=== PATIENT | female | born 1995 | race Two or more races ===

== ENCOUNTER 2018-03-26 08:09 | Emergency (ER) | payer OTHER ==
[2018-03-26] MEDS ORDERED: DOXYLAMINE 25 MG TABLET PO STA (08:59)
[2018-03-26] MEDS ORDERED: SODIUM CHLORIDE 0.9% 1,000 ML IV ONE (08:59)
[2018-03-26] MEDS ORDERED: PYRIDOXINE 100 MG TABLET PO STA (09:00)
--- NOTE | 2018-03-26 09:04 | ED Physician Documentation ---
PD HPI NVD - Stated complaint Stated Complaint: VOMITING/12 WKS PREG - Chief complaint Chief Complaint: General - History obtained from History obtained from: Patient, Family - History of Present Illness Timing - onset: How many weeks ago (3) Timing - duration: Weeks (3) Timing - details: Gradual onset, Still present, Waxing and waning Associated symptoms: Abdominal pain, Other (vomiting) Contributing factors: Other ( 11 weeks) Improved by: Vomiting Similar symptoms before: Diagnosis (hyperemesis) Recently seen: Emergency Dept - Additonal information Additional information: 23-year-old female is 11 weeks and has developed nausea and vomiting at about 8 weeks. She has had a difficult time keeping down any fluids. She was seen in the emergency department at [facility] in [place] 6 days ago given IV fluids and zofran with some improvement. She has vomited daily since and is having leg cramping as well. Review of Systems Constitutional: denies: Fever Eyes: denies: Decreased vision Ears: denies: Ear pain Nose: denies: Congestion Throat: denies: Sore throat Cardiac: denies: Chest pain / pressure, Palpitations Respiratory: denies: Dyspnea, Cough GI: reports: Nausea, Vomiting. denies: Abdominal Pain : denies: Dysuria, Frequency Skin: denies: Rash, Lesions Musculoskeletal: denies: Neck pain, Back pain, Extremity pain Neurologic: denies: Generalized weakness, Focal weakness, Numbness PD PAST MEDICAL HISTORY - Past Medical History Neuro: Headaches - Past Surgical History Past Surgical History: Yes General: Cholecystectomy, Appendectomy - Present Medications Home Medications: Ambulatory Orders Medication Instructions Recorded Confirmed Acetaminophen [Tylenol] PRN 03/26/18 Ondansetron [Zofran Odt] 03/26/18 Vitamin [Trinatal Rx 1] PO DAILY 03/26/18 - Allergies Allergies/Adverse Reactions: Allergies Allergy/AdvReac Type Severity Reaction Status Date / Time No Known Drug Allergies Allergy Verified 03/26/18 08:30 - Social History Does the pt smoke?: No Smoking Status: Never smoker Does the pt drink ETOH?: No Does the pt have substance abuse?: No - Immunizations Immunizations are current?: Yes PD ED PE NORMAL - Vitals Vital signs reviewed: Yes (hypertensive ) - General General: Alert and oriented X 3, No acute distress, Well developed/nourished - HEENT HEENT: Atraumatic, PERRL, EOMI - Neck Neck: Supple, no meningeal sign, No bony TTP - Cardiac Cardiac: RRR, No murmur - Respiratory Respiratory: No respiratory distress, Clear bilaterally - Abdomen Abdomen: Soft, Non tender - Back Back: No CVA TTP, No spinal TTP - Derm Derm: Normal color, Warm and dry, No rash - Extremities Extremities: No deformity, No edema - Neuro Neuro: Alert and oriented X 3, manager line 2-12 intact, No motor deficit, No sensory deficit, Normal speech Eye Opening: Spontaneous Motor: Obeys Commands Verbal: Oriented GCS Score: 15 - Psych Psych: Normal mood, Normal affect Results - Vitals Vitals: Vital Signs - 24 hr 03/26/18 03/26/18 03/26/18 08:27 10:54 13:09 Temperature 36.7 C Heart Rate 82 73 62 Respiratory 15 15 15 Rate Blood Pressure 135/97 H 115/77 114/64 O2 Saturation 98 98 97 Oxygen O2 Source Room air - Labs Labs: Laboratory Tests 03/26/18 03/26/18 03/26/18 09:15 09:15 11:40 WBC 11.9 H RBC 4.68 Hgb 14.0 Hct 40.4 MCV 86.5 MCH 29.9 MCHC 34.6 RDW 13.5 Plt Count 247 MPV 7.9 Neut # (Auto) 8.8 H Lymph # (Auto) 2.5 Bibb # (Auto) 0.5 Eos # (Auto) 0.1 Baso # (Auto) 0.0 Absolute Nucleated RBC 0.00 Nucleated RBC % 0.0 Sodium 135 Potassium 3.4 L Chloride 105 Carbon Dioxide 24 Anion Gap 6.0 BUN 10 Creatinine 0.4 Estimated GFR (MDRD) 194 Glucose 91 Calcium 8.9 Total Bilirubin 0.6 AST 24 ALT 40 Alkaline Phosphatase 56 Total Protein 7.3 Albumin 3.9 Globulin 3.4 Albumin/Globulin Ratio 1.1 Lipase 23 Urine Color YELLOW Urine Clarity CLOUDY Urine pH 8.0 H Ur Specific [place] 1.015 Urine Protein NEGATIVE Urine Glucose (UA) NEGATIVE Urine Ketones NEGATIVE Urine Occult Blood NEGATIVE Urine Nitrite NEGATIVE Urine Bilirubin NEGATIVE Urine Urobilinogen 1 (NORMAL) Ur Leukocyte Esterase NEGATIVE Urine RBC 0-5 Urine WBC 0-3 Ur Squamous Epith Cells FEW Squamous Amorphous Sediment Moderate Urine Bacteria Moderate H Ur Microscopic Review INDICATED Urine Culture Comments INDICATED Procedures - Bedside sono Bedside sono by EMP: With use of bedside ultrasound a viable 11 week 4 day old fetus by crown-rump length has a heart rate of 156 bpm. - IVC sono (time) 0900 Bedside IVC sono: IVC measures (cm) (1.14), IVC collapsed c insp (cm) (complete) , Dehydration (est 1.5 liter deficit) PD MEDICAL DECISION MAKING - ED course Complexity details: reviewed results, re-evaluated patient, considered differential, d/w patient, d/w family ED course: 23-year-old female with hyperemesis gravidarum is administered doxylamine and vitamin B6 as well as intravenous saline. She does not tolerate the doxylamine and vomits the dose. She is given zofran IVP with improvement. She has bacteria in the urine and a single dose of rocephin is given IV and the urine is cultured. - Sepsis Event Vital Signs: Vital Signs - 24 hr 03/26/18 03/26/18 03/26/18 08:27 10:54 13:09 Temperature 36.7 C Heart Rate 82 73 62 Respiratory 15 15 15 Rate Blood Pressure 135/97 H 115/77 114/64 O2 Saturation 98 98 97 Oxygen O2 Source Room air Departure - Departure Disposition: 01 Home, Self Care Clinical Impression: Hyperemesis gravidarum, Dehydration Condition: Stable Instructions: ED Dehydration, ED Preg Morning Sickness Follow-Up: ED Antonio [Provider Group] Comments: Today you were a bit dehydrated from the vomiting. Our recommendation is the doxylamine (unisom) 25mg and vitamin B6 together for nausea control. Follow up with your OB doctor this week. Discharge Date/Time: 03/26/18 13:08
[2018-03-26 09:20] LABS: BASOPHILS % (AUTO) 0.4 %; EOSINOPHILS # (AUTO) 0.1 10^3/uL (0.0-0.7); EOSINOPHILS % (AUTO) 0.7 %; LYMPHOCYTES # (AUTO) 2.5 10^3/uL (1.5-3.5); LYMPHOCYTES % (AUTO) 20.8 %; MEAN CORPUSCULAR HEMOGLOBIN 29.9 pg (27.0-31.0); MEAN CORPUSCULAR HGB CONC 34.6 g/dL (32.0-36.0); MEAN CORPUSCULAR VOLUME 86.5 fL (81.0-99.0); MEAN PLATELET VOLUME 7.9 fL (7.9-10.8); MONOCYTES # (AUTO) 0.5 10^3/uL (0.0-1.0); MONOCYTES % (AUTO) 4.4 %; NEUTROPHILS # (AUTO) 8.8 10^3/uL (1.5-6.6); NEUTROPHILS % (AUTO) 73.7 %; PLT - PLATELET COUNT 247 10^3/uL (130-450); RED BLOOD COUNT 4.68 10^6/uL (4.20-5.40); RED CELL DISTRIBUTION WIDTH 13.5 % (12.0-15.0); WHITE BLOOD COUNT 11.9 x10^3/uL (4.8-10.8)
[2018-03-26 09:37] LABS: ALBUMIN 3.9 g/dL (3.2-5.5); ALBUMIN/GLOBULIN RATIO 1.1 (1.0-2.2); BILIRUBIN,TOTAL 0.6 mg/dL (0.2-1.0); CALCIUM 8.9 mg/dL (8.5-10.3); CREATININE 0.4 mg/dL (0.4-1.0); TOTAL PROTEIN 7.3 g/dL (6.7-8.2)
[2018-03-26] MEDS ORDERED: POTASSIUM BICARB 25 MEQ TABLET PO STA (10:31)
[2018-03-26] MEDS ORDERED: ONDANSETRON 4 MG/2 ML VIAL IVP STA (10:51)
[2018-03-26] MEDS ORDERED: ONDANSETRON 4 MG/2 ML VIAL ONE (10:56)
[2018-03-26 11:51] LABS: BILIRUBIN,URINE NEGATIVE (NEGATIVE); GLUCOSE, URINE (UA) NEGATIVE (NEGATIVE); KETONES,URINE (UA) NEGATIVE (NEGATIVE); LEUKOCYTE ESTERASE, URINE NEGATIVE (NEGATIVE); NITRITE,URINE NEGATIVE (NEGATIVE); OCCULT BLOOD,URINE NEGATIVE (NEGATIVE); PROTEIN,URINE NEGATIVE (NEGATIVE); UROBILINOGEN,URINE 1 (NORMAL) E.U./dL (NORMAL)
[2018-03-26 12:02] LABS: CLARITY,URINE CLOUDY (CLEAR)
[2018-03-26 12:03] LABS: AMORPHOUS SEDIMENT,UR Moderate /LPF; BACTERIA,URINE Moderate /HPF (None Seen); RBC,URINE 0-5 /HPF (0-5); SQUAMOUS EPITHELIAL CELL,UR FEW Squamous (<= Few)
[2018-03-26] MEDS ORDERED: cefTRIAXone 1 GM in SODIUM CHLORIDE 0.9% MINIBAG 100 ML IV STA (12:12)
[2018-03-26 13:10] VITALS: BP 114/64
== END 2018-03-26 13:08 | disposition home or self-care (01) ==
LOC: ED 08:09
DX: O21.1 Hyperemesis gravidarum with metabolic disturbance (principal); Z3A.11 11 weeks gestation of pregnancy
CPT/HCPCS: 36415; 80053; 81001; 83690; 85025; 87086; 96361; 96365; 96375; 99283; A9270; 81003

== ENCOUNTER 2018-03-28 10:30 | Observation (INO) | payer OTHER ==
[2018-03-28] MEDS ORDERED: SODIUM CHLORIDE 0.9% 2,000 ML IV ONE (10:41)
[2018-03-28] MEDS ORDERED: DEXTROSE 5%-0.45% NACL 1,000 ML IV ONE (10:42)
[2018-03-28 11:20] LABS: BUN - BLOOD UREA NITROGEN 8 mg/dL (6-20); CALCIUM 9.1 mg/dL (8.5-10.3); CARBON DIOXIDE - CO2 21 mmol/L (21-32); CHLORIDE 105 mmol/L (101-111); CREATININE 0.4 mg/dL (0.4-1.0); GFR - MDRD 194 (>89); GLUCOSE 92 mg/dL (70-100); KETONES, SERUM (ACETEST) NEGATIVE (NEGATIVE); SODIUM 134 mmol/L (135-145)
[2018-03-28] MEDS ORDERED: METOCLOPRAMIDE 10 MG/2 ML VIAL IVP STA (12:45)
--- NOTE | 2018-03-28 12:48 | ED Physician Documentation ---
History of Present Illness - Stated complaint Stated Complaint: VOMITING/12WKS PREG - Chief complaint Chief Complaint: Abd Pain - Additonal information Additional information: hx from pt 23 y/o followed at [facility] has had sono showing single live IUP per pt vomiting since 8 wk EGA [place] tried 4 different antiemetics per pt (B6 zofran and some others) and none work still with NV some abd cramping no bleeding called her OB who called [facility] to have pt admitted for hyperemesis and [facility] Ob referred pt to the ER no travel no bad food no sick contacts Review of Systems Constitutional: denies: Fever GI: reports: Vomiting. denies: Abdominal Pain : reports: Now EGA. denies: Vaginal bleeding PD PAST MEDICAL HISTORY - Past Medical History Neuro: Headaches - Past Surgical History Past Surgical History: Yes General: Cholecystectomy, Appendectomy - Present Medications Home Medications: Ambulatory Orders Medication Instructions Recorded Confirmed Vitamin [Trinatal Rx 1] 1 tab PO DAILY 03/26/18 03/28/18 ALPRAZolam [Alprazolam] 0.5 mg PO PRN PRN 03/28/18 03/28/18 - Allergies Allergies/Adverse Reactions: Allergies Allergy/AdvReac Type Severity Reaction Status Date / Time No Known Drug Allergies Allergy Verified 03/28/18 10:39 - Social History Does the pt smoke?: No Smoking Status: Never smoker Does the pt drink ETOH?: No Does the pt have substance abuse?: No - Immunizations Immunizations are current?: Yes - POLST Patient has POLST: No PD ED PE NORMAL - Vitals Vital signs reviewed: Yes - Cardiac Cardiac: RRR - Respiratory Respiratory: No respiratory distress, Clear bilaterally - Abdomen Abdomen: Soft, Non tender - Neuro Neuro: Alert and oriented X 3 Results - Vitals Vitals: Vital Signs - 24 hr 03/28/18 03/28/18 10:37 13:19 Temperature 36.5 C Heart Rate 81 72 Respiratory 18 16 Rate Blood Pressure 124/89 H 111/61 O2 Saturation 98 97 Oxygen O2 Source Room air - Labs Labs: Laboratory Tests 03/28/18 03/28/18 03/28/18 10:50 10:50 10:50 Sodium 134 L Potassium 3.3 L Chloride 105 Carbon Dioxide 21 Anion Gap 8.0 BUN 8 Creatinine 0.4 Estimated GFR (MDRD) 194 Glucose 92 Calcium 9.1 AST Lactate Dehydrogenase 94 Amylase 63 Urine Color Urine Clarity Urine pH Ur Specific [place] Urine Protein Urine Glucose (UA) Urine Ketones Urine Occult Blood Urine Nitrite Urine Bilirubin Urine Urobilinogen Ur Leukocyte Esterase Urine RBC Urine WBC Ur Squamous Epith Cells Urine Bacteria Ur Microscopic Review Urine Culture Comments Serum Ketones NEGATIVE 03/28/18 03/28/18 10:50 13:09 Sodium Potassium Chloride Carbon Dioxide Anion Gap BUN Creatinine Estimated GFR (MDRD) Glucose Calcium AST 21 Lactate Dehydrogenase Amylase Urine Color YELLOW Urine Clarity CLOUDY Urine pH 8.5 H Ur Specific [place] 1.015 Urine Protein NEGATIVE Urine Glucose (UA) NEGATIVE Urine Ketones 15 H Urine Occult Blood NEGATIVE Urine Nitrite NEGATIVE Urine Bilirubin NEGATIVE Urine Urobilinogen 0.2 (NORMAL) Ur Leukocyte Esterase NEGATIVE Urine RBC 0-5 Urine WBC 0-3 Ur Squamous Epith Cells FEW Squamous Urine Bacteria Moderate H Ur Microscopic Review INDICATED Urine Culture Comments INDICATED Serum Ketones PD MEDICAL DECISION MAKING - ED course ED course: UA moderate bacteria but no WBC leuk est nitrates - prior cx form few days ago no growth pt reports numerous ED visits and not better with trying different PO antiemetics - sent by her ED OB to be admitted gave IVF and reglan (cat B) in ED - better but still with nausea vomit spoke to OB Dr Bell who will pbs for IVF and meds - Sepsis Event Vital Signs: Vital Signs - 24 hr 03/28/18 03/28/18 10:37 13:19 Temperature 36.5 C Heart Rate 81 72 Respiratory 18 16 Rate Blood Pressure 124/89 H 111/61 O2 Saturation 98 97 Oxygen O2 Source Room air Departure - Departure Disposition: ED Place in Observation Clinical Impression: Hyperemesis Condition: Fair Discharge Date/Time: 03/28/18 16:24
[2018-03-28 13:19] LABS: BILIRUBIN,URINE NEGATIVE (NEGATIVE); GLUCOSE, URINE (UA) NEGATIVE (NEGATIVE); KETONES,URINE (UA) 15 mg/dL (NEGATIVE); LEUKOCYTE ESTERASE, URINE NEGATIVE (NEGATIVE); NITRITE,URINE NEGATIVE (NEGATIVE); OCCULT BLOOD,URINE NEGATIVE (NEGATIVE); PH,URINE 8.5 PH (5.0-7.5); PROTEIN,URINE NEGATIVE (NEGATIVE); UROBILINOGEN,URINE 0.2 (NORMAL) E.U./dL (NORMAL)
[2018-03-28 13:20] LABS: CLARITY,URINE CLOUDY (CLEAR)
[2018-03-28 13:33] LABS: BACTERIA,URINE Moderate /HPF (None Seen); RBC,URINE 0-5 /HPF (0-5); SQUAMOUS EPITHELIAL CELL,UR FEW Squamous (<= Few)
[2018-03-28] MEDS ORDERED: LACTATED RINGERS 1,000 ML IV ONE (15:12)
[2018-03-28] MEDS ORDERED: ONDANSETRON 4 MG/2 ML VIAL IVP STA (15:14)
[2018-03-28] MEDS ORDERED: SODIUM CHLORIDE FLUSH 0.9% 10 ML SYRINGE ONE (16:46)
[2018-03-28] MEDS ORDERED: ACETAMINOPHEN 325 MG TABLET PO PRN (21:04)
[2018-03-28] MEDS: POTASSIUM CHLOR 10 MEQ/100 ML 10 MEQ/100 ML BAG IV SCH ×3 (21:27→23:49)
[2018-03-28] MEDS ORDERED: PROMETHAZINE 25 MG SUPP PR SCH (22:00)
[2018-03-28] MEDS: ONDANSETRON 4 MG/2 ML VIAL IVP PRN (22:28)
[2018-03-28] MEDS: LACTATED RINGERS 1,000 ML IV SCH (22:33)
--- NOTE | 2018-03-29 03:09 | Ultrasound Report ---
Procedure Date: 03/29/2018 Accession Number: [id number] / [id number] Procedure: US - OB First Trimester CPT Code: FULL RESULT: EXAM: FIRST TRIMESTER OBSTETRIC ULTRASOUND EXAM DATE: 03/29/2018 01:14 AM. CLINICAL HISTORY: For development, placenta, molar . LMP: 12/31/2017. COMPARISONS: None. TECHNIQUE: Transabdominal ultrasound examination with static image documentation. CLINICAL DATES: EGA 12 weeks 4 days with ELINA 10/07/2018 based on LMP. ASSESSMENT: Gestational Sac: Single intrauterine. Mean gestational sac diameter: 52.7 mm. Embryo: CRL (crown-rump length) 54.3 mm = 12 weeks 0 days. Cardiac activity: 152 beats per minute. Yolk sac: Not seen. Amniotic fluid: Not accurately assessed at this gestational age. Early placenta: Posterior. Other: No perigestational fluid collection demonstrated. MATERNAL STRUCTURES: Uterus: Anteverted. Unremarkable. Cervix: Closed. Right Ovary/Adnexa: Unremarkable. The ovary measures 3.0 x 1.7 x 2.6 cm, volume 7.1 cc. Left Ovary/Adnexa: Unremarkable. The ovary measures 2.2 x 1.6 x 3.5 cm, volume 6.4 cc. Free Fluid: None. Other: Cystic structure in the right lower quadrant lateral to the uterus measuring 2.8 x 2.8 x 2.9 cm. IMPRESSION: 1. Single viable intrauterine at EGA 12 weeks 0 days with ELINA 10/11/2018 based on crown-rump length, which is concordant with clinical dates. 2. Assigned dating is ELINA 10/07/2018 based on LMP. 3. Developing placenta is posterior. No placental abnormalities seen. 4. Cystic structure of uncertain etiology to the right of the uterus measuring 2.8 x 2.8 x 2.9 cm. This does not appear to arise from the right ovary. RADIA
[2018-03-29] MEDS: LACTATED RINGERS 1,000 ML IV SCH (04:41)
[2018-03-29 06:43] LABS: ALBUMIN/GLOBULIN RATIO 1.3 (1.0-2.2); ALKALINE PHOSPHATASE 45 IU/L (42-121); ALT ALANINE AMINOTRANSFERASE 28 IU/L (10-60); AST ASPARTATE AMINOTRANSFERASE 18 IU/L (10-42); BILIRUBIN,TOTAL 0.7 mg/dL (0.2-1.0); BUN - BLOOD UREA NITROGEN < 5 mg/dL (6-20); CALCIUM 8.1 mg/dL (8.5-10.3); CARBON DIOXIDE - CO2 21 mmol/L (21-32); CHLORIDE 106 mmol/L (101-111); CREATININE 0.4 mg/dL (0.4-1.0); GFR - MDRD 194 (>89); GLUCOSE 84 mg/dL (70-100); SODIUM 132 mmol/L (135-145); TOTAL PROTEIN 5.4 g/dL (6.7-8.2)
[2018-03-29] MEDS: ONDANSETRON 4 MG/2 ML VIAL IVP PRN ×2 (08:34→19:48)
[2018-03-29] MEDS ORDERED: SODIUM CHLORIDE FLUSH 0.9% 10 ML SYRINGE ONE ×3 (08:44→22:04)
--- NOTE | 2018-03-29 08:50 | PROVIDER PROGRESS NOTE ---
Subjective - Prog Note Date Prog Note Date: 03/29/18 Prog Note Time: 07:30 - Subjective Pt reports feeling: No change Subjective: Mrs. Lopez continues to report nausea and after receiving her Phenergan suppository last night reported nonbilious nonbloody vomiting 1. For the most part she is keeping some of the fluids down but her intake is not robust. She notes mild left lower quadrant pain without triggering events. Patient has no fevers, chills, constipation or diarrhea. She states she continues to have difficulty sleeping at night. She did not take the prescribed Ambien. She stated she laid awake until just before 5 AM today.We discussed the results of her formal ultrasound yesterday did not find molar and demonstrated normal growth with a small right adnexal cyst. Objective - Vital Signs/Intake & Output Vital Signs: Vital Signs x48h Temp Pulse Resp BP Pulse Ox 03/29/18 08:15 98.6 F 58 L 20 101/51 L 99 03/29/18 06:00 97.7 F 63 18 99/56 L 100 Intake & Output: Intake & Output 03/26/18 03/27/18 03/28/18 03/29/18 23:59 23:59 23:59 23:59 Intake Total 1962.5 1137.5 Balance 1962.5 1137.5 - Lab Results Fish Bones: 03/29/18 05:55 Other Labs: Lab Results x24hrs 03/29/18 Range/Units 05:55 Sodium 132 L (135-145) mmol/L Potassium 3.5 (3.5-5.0) mmol/L Chloride 106 (101-111) mmol/L Carbon Dioxide 21 (21-32) mmol/L Anion Gap 5.0 L (6-13) BUN < 5 L (6-20) mg/dL Creatinine 0.4 (0.4-1.0) mg/dL Estimated GFR (MDRD) 194 (>89) Glucose 84 (70-100) mg/dL Calcium 8.1 L (8.5-10.3) mg/dL Total Bilirubin 0.7 (0.2-1.0) mg/dL AST 18 (10-42) IU/L ALT 28 (10-60) IU/L Alkaline Phosphatase 45 (42-121) IU/L Total Protein 5.4 L (6.7-8.2) g/dL Albumin 3.0 L (3.2-5.5) g/dL Globulin 2.4 (2.1-4.2) g/dL Albumin/Globulin Ratio 1.3 (1.0-2.2) Physical Exam - Physical Exam HEENT: positive: Dentition normal Neck: positive: Supple w/out meningeal sx Abdomen: positive: Normal Bowel sounds, Other (No significant abdominal tenderness) Extremities: positive: Normal ROM Skin: positive: Warm and dry PSYCH: positive: Flat affect (Affect is somewhat flat but uncertain if this is not secondary to sleep deprivation) Assess/Plan - Patient Problems Active Problems List: Current Active Problems Hyperemesis (Acute) Active Problems Comments: Patient has not completely broke the gag retch vomit cycle. Will continue with the current regimen of anti-emetics including Zofran and Phenergan. - Additional Planning My Orders: My Active Orders 03/28/18 21:04 Acetaminophen [Tylenol] 650 mg PO Q4HR PRN 03/28/18 21:09 Ondansetron Inj [Zofran Inj] 4 mg IVP Q4HR PRN 03/28/18 23:00 Lactated Ringers [Lr] 1,000 ml IV 166 mls/hr 03/28/18 Dinner Clear Liquid Diet [DIET]
[2018-03-29] MEDS ORDERED: METOCLOPRAMIDE 10 MG/2 ML VIAL IVP PRN (08:58)
[2018-03-29] MEDS: NS W/20 MEQ KCL 1,000 ML IV SCH ×3 (09:14→22:19)
[2018-03-29] MEDS: PROMETHAZINE INJ 25 MG in SODIUM CHLORIDE 0.9% 50 ML IV PRN (12:15)
--- NOTE | 2018-03-29 12:37 | CONSULTATION NOTE ---
DATE OF SERVICE: 03/28/2018 Physician: Miles Bell MD EMERGENCY ROOM CONSULT AND ADMISSION NOTE DIAGNOSES 1. Hyperemesis. 2. Significant hypokalemia and hyponatremia. 3. Dehydration failing outpatient therapy. HISTORY OF PRESENT ILLNESS: Patient is a 23-year-old primigravida at 12 weeks' gestation who normally gets her care at [facility]. She has had problems with hyperemesis since 8 weeks' gestation and has been seen multiple times at [facility] and once at our ER. She reports the inability to hold down fluids and feels weak. She reports orthostatic dizziness. She has no suspicion of tainted food or recent contact with individuals with viral enteritis or with illness. Prior to , she had no history of eating disorder or chronic nausea. She has tried vitamin B6, Diclegis, Zofran ODT tablets without success. Thus far, she says the has been uneventful other than the severe nausea. Her is home and not on deployment. She denies a history of chronic anxiety. PAST MEDICAL HISTORY: No chronic disease history. PAST SURGICAL HISTORY: Cholecystectomy, appendectomy. ALLERGIES: NO KNOWN DRUG ALLERGIES. MEDICATIONS 1. vitamins. 2. Alprazolam 0.5 mg p.r.n. FAMILY HISTORY: Noncontributory. SOCIAL HISTORY: [place] . No history of tobacco, drug, or alcohol use. REVIEW OF SYSTEMS CONSTITUTIONAL: Patient denies fever, chills, constitutional changes. Slight weight loss with hyperemesis. HEENT: Negative. CARDIAC: Negative. LUNGS: Negative. BREASTS: Negative. ABDOMEN: Hyperemesis symptoms, dehydration, mild left lower quadrant pain. : No symptoms suggestive of UTI. EXTREMITIES: Negative. NEUROLOGIC: Negative. PSYCHIATRIC: Patient denies history of eating disorder, prior psychiatric counseling or medications. PHYSICAL EXAMINATION GENERAL: Appears ill, lying quietly in bed. VITAL SIGNS: Temperature 36.5, pulse 81, respirations 18, blood pressure 124/89 , oxygen saturation 98 on room air. HEENT: Loss of facial skin turgor, slightly sunken eyes, dry mucous membranes. Dentition in good repair. NECK: No thyromegaly. Supple. LUNGS: Clear to auscultation. CARDIOVASCULAR: Regular. No murmur, no gallop. BREASTS: Deferred. ABDOMEN: Nondistended. No organomegaly. Minimal left lower quadrant tenderness to deep palpation. No rebound. Scar is well healed. PELVIC: Deferred. EXTREMITIES: Nonedematous. Moves all 4 extremities well. NEUROLOGIC: Grossly intact, appropriate. Patellar 2+ and equal. LABORATORY DATA: Sodium low at 134, potassium low at 3.3. Liver enzymes normal. Creatinine 0.4. Await urinalysis. ASSESSMENT: Patient has had multiple emergency room visits and failed a trial of outpatient medication. We must break the retch-vomit cycle by beginning GI rest. IV antiemetics may be necessary to control her symptoms. The patient states she does not have a psychiatric history, but she is on alprazolam. PLAN 1. GI rest. 2. Antiemetics to include IV Zofran 4 mg q.4 h. p.r.n. 3. Phenergan rectal suppositories 25 mg. 4. Assess and look for ultrasound findings suggestive of molar . Continue evaluation. TD: 03/29/2018 09:26 [facility]
[2018-03-29] MEDS ORDERED: MORPHINE 10 MG/ML VIAL IM ONE (21:29)
[2018-03-30] MEDS: NS W/20 MEQ KCL 1,000 ML IV SCH ×2 (03:54→10:07)
[2018-03-30] MEDS: ONDANSETRON 4 MG/2 ML VIAL IVP PRN (06:18)
[2018-03-30] MEDS ORDERED: SODIUM CHLORIDE FLUSH 0.9% 10 ML SYRINGE ONE (06:26)
[2018-03-30] MEDS: PROMETHAZINE INJ 25 MG in SODIUM CHLORIDE 0.9% 50 ML IV PRN (06:55)
--- NOTE | 2018-03-30 07:31 | DISCHARGE SUMMARY ---
Physician: Miles Bell MD DATE OF ADMISSION: 03/28/2018 DATE OF DISCHARGE: 03/30/2018 DIAGNOSES: 1. Hyperemesis. 2. Hypokalemia and hyponatremia. 3. Dehydration. 4. Failed outpatient therapy. 5. Adjustment disorder, possible depression COMPLICATIONS: None. HISTORY: Alyson Lopez is a 23-year-old primigravida at 12 weeks gestation who normally receives care at the [facility]. She has had difficulty with severe hyperemesis since 8 weeks gestation and has been seen multiple times at the [facility] emergency room and once at [facility]. On the day of admission, she was unable to hold down fluids or solid foods. She reported orthostatic dizziness and overall fatigue and weakness. There is no chronic disease history. She never had any eating disorders or chronic anxiety. Patient denies depression but relates she is somewhat overwhelmed. She recently her and moved to [facility] from her [facility] home. Soon after she became . She feels isolated away from her extended family. PAST SURGICAL HISTORY: Cholecystectomy and appendectomy. ALLERGIES: NO KNOWN DRUG ALLERGIES. LABORATORY DATA: On admission, her sodium was low at 134 as well as potassium at 3.3. Liver enzymes were normal. Creatinine was normal. Urinalysis showed hemoconcentration and ketonuria. HOSPITAL COURSE: The patient was admitted and begun on IV fluids, initially lactated Ringer's, with multiple K riders. Gradually, the potassium corrected. The main IV fluid was changed from lactated Ringer's to normal saline. The patient was completely exhausted from not having slept for several nights. Antiemetics included IV Zofran 4 mg q.4h. with Phenergan suppositories. Reglan proved to being ineffective. Phenergan suppositories were changed over to 25 mg Phenergan q.8h. IM injections. The patient was able to hold fluids down, though on Monday night she did have a bout of emesis. She was kept on a clear liquid with only sips for meds. On the evening of hospital day 2, the patient developed a typical migraine. She was given morphine 10 mg IM to provide therapeutic rest. On hospital day #3, the patient lingered in bed and took slowly solid nutrition without difficulty. She was prepared for discharge. She is recommended to have a bland diet and to follow the recommendations of the tape calender who had seen her in consultation. Diclegis was recommended as the antiemetic. The patient is urged to return to the [facility] clinic next week for followup. Additionally recommended patient contact the [facility] but did spend for the psychosocial support offered by her 's command. Patient denies suicidal or violent ideation. She does have some support as her mother is currently visiting. Please fax this report to the [facility] obstetrics clinic. TD: 03/29/2018 21:37 AFSHAN
[2018-03-30 08:27] VITALS: BP 109/51
--- NOTE | 2018-03-30 10:20 | Discharge Plan ---
Discharge Plan Disposition: 01 Home, Self Care Condition: Fair Diet: Regular (Patient to follow instructions given by dietary for hyperemesis diet) Activity Restrictions: Activity as Tolerated Shower Restrictions: No Driving Restrictions: No Weight Bearing: Full Weight Instruction Topics: Hyperemesis, ED Preg Morning Sickness Additional Instructions or Follow Up instructions: Patient is to make an appointment with her usual [place] physician next week to follow-up. Additionally she is to contact the [facility] for social support. Please fax my discharge summary to the [place] obstetrical clinic. No Smoking: If you smoke, Please STOP! Call for help. Follow-up with: Provider,Other [Primary Care Provider] - Miles Ragland MD [Physician No Access] -
== END 2018-03-30 10:54 | disposition home or self-care (01) ==
LOC: ED 10:30 → MS2 15:15
PROVIDERS: ADMIT Obstetrics & Gynecology; ATTEND Obstetrics & Gynecology
DX: O21.1 Hyperemesis gravidarum with metabolic disturbance (principal); Z3A.12 12 weeks gestation of pregnancy; O99.341 Other mental disorders complicating pregnancy, first trimester; F43.20 Adjustment disorder, unspecified; O99.351 Diseases of the nervous system complicating pregnancy, first trimester; G43.909 Migraine, unspecified, not intractable, without status migrainosus; Z79.899 Other long term (current) drug therapy; Z63.8 Other specified problems related to primary support group
CPT/HCPCS: 36415; 76801; 80048; 80053; 81001; 82009; 82150; 83615; 84450; 87086; 96361; 96365; 96366; 96367; 96372; 96375; 96376; 99283; 99284; A9270; G0378; J2765; J7040; J7120; J8498; 81003; 96374

== ENCOUNTER 2018-11-04 10:52 | Emergency (ER) | payer OTHER ==
--- NOTE | 2018-11-04 11:46 | ED Physician Documentation ---
PD HPI SKIN - Stated complaint Stated Complaint: FEVER/CHILLS - Chief complaint Chief Complaint: General - History obtained from History obtained from: Patient - History of Present Illness Timing - onset: Yesterday Timing - duration: Days (1-2) Timing - details: Abrupt onset, Still present Location: Other (right breast with redness, tenderness, and pain.) Associated symptoms: No: Fever, Myalgias, N/V/D Similar symptoms before: Diagnosis (mastitis when her baby was few days old and was given Diclox and improved.) Review of Systems Constitutional: reports: Chills. denies: Fever Nose: denies: Rhinorrhea / runny nose, Congestion Throat: denies: Sore throat Respiratory: denies: Cough GI: denies: Nausea, Vomiting, Diarrhea Skin: reports: Rash (redness over the breast lump feeling that is tender.) PD PAST MEDICAL HISTORY - Past Medical History Cardiovascular: None Respiratory: None Neuro: Headaches Endocrine/Autoimmune: None GI: None : None HEENT: None Psych: None Musculoskeletal: None Derm: None - Past Surgical History Past Surgical History: Yes General: Cholecystectomy, Appendectomy - Present Medications Home Medications: Ambulatory Orders Medication Instructions Recorded Confirmed Vitamin [Trinatal Rx 1] 1 tab PO DAILY 03/26/18 11/04/18 ALPRAZolam [Alprazolam] 0.5 mg PO PRN PRN 03/28/18 11/04/18 Dicloxacillin [Dynapen] 500 mg PO Q6H #40 capsule 11/04/18 Labetalol [Trandate] 100 mg PO BID 11/04/18 11/04/18 - Allergies Allergies/Adverse Reactions: Allergies Allergy/AdvReac Type Severity Reaction Status Date / Time No Known Drug Allergies Allergy Verified 03/28/18 10:39 - Social History Does the pt smoke?: No Smoking Status: Never smoker Does the pt drink ETOH?: No Does the pt have substance abuse?: No - Immunizations Immunizations are current?: Yes - POLST Patient has POLST: No PD ED PE NORMAL - Vitals Vital signs reviewed: Yes - General General: Alert and oriented X 3, No acute distress, Well developed/nourished - HEENT HEENT: Pharynx benign - Neck Neck: Supple, no meningeal sign, No adenopathy - Cardiac Cardiac: RRR, No murmur, No gallop, No rub - Respiratory Respiratory: Clear bilaterally - Derm Derm: Other (right breast with tenderness and firmness medial upper area. No fluctuance felt per se. Area is warm. ) Results - Vitals Vitals: Vital Signs - 24 hr 11/04/18 11/04/18 10:57 12:25 Temperature 37.1 C 38.1 C H Heart Rate 98 80 Respiratory 14 16 Rate Blood Pressure 143/68 H 136/75 H O2 Saturation 100 99 Oxygen O2 Source Room air Departure - Departure Disposition: 01 Home, Self Care Clinical Impression: Mastitis, right, acute Condition: Stable Record reviewed to determine appropriate education?: Yes Instructions: ED Breast Infec Prescriptions: Dicloxacillin [Dynapen] 500 mg PO Q6H #40 capsule Comments: Warm moist towels to the reddened area. Continue pumping and feeding for good flow out of the breast tissue. Dicloxacillin as prescribed for 7-10 days. Use some ibuprofen 2-3 times a day for the next few days and add Tylenol if needed for pain. Recheck if not improved over the next 2-3 days. Discharge Date/Time: 11/04/18 12:46
[2018-11-04 12:26] VITALS: BP 136/75
[2018-11-04] MEDS ORDERED: DICLOXACILLIN 250 MG CAPSULE PO STA (12:29)
[2018-11-04] MEDS ORDERED: ACETAMINOPHEN 500 MG TABLET PO STA (12:29)
== END 2018-11-04 12:46 | disposition home or self-care (01) ==
LOC: ED 10:52
DX: N61.0 Mastitis without abscess (principal)
CPT/HCPCS: 99283; A9270